=== PATIENT | female | born 1945 | race African-American/Black ===

== ENCOUNTER 2017-05-02 04:48 | Inpatient (IN) | payer MEDICARE ==
[~2017-05-02] VITALS: Ht 162.6 cm; Wt 56.2 kg
[2017-05-02 05:14] LABS: BASOPHILS % 0.4 % (0.0-2.0); EOSINOPHILS % 0.5 % (0.0-5.0); HEMATOCRIT. 43.8 % (36.0-48.0); HEMOGLOBIN. 14.5 g/dL (12.0-16.0); LYMPHOCYTES % 38.8 % (20.0-50.0); MEAN CORPUSCULAR VOLUME 102.7 fL (81.0-99.0); MEAN PLATELET VOLUME 7.7 fl (7.4-10.4); MONOCYTES % 4.5 % (2.0-8.0); NEUTROPHILS % 55.8 % (40.0-76.0); PLATELET 299 x1000/uL (130-400); RED BLOOD CELL COUNT 4.27 mill/uL (4.2-5.4); RED CELL DISTRIBUTION WIDTH 13.9 % (11.6-14.6)
[2017-05-02 05:21] LABS: PROTHROMBIN TIME 10.7 sec (9.4-11.6)
[2017-05-02 05:42] LABS: CARBON DIOXIDE 22 mEq/L (21-32); CHLORIDE 111 mEq/L (98-107); TROPONIN I 0.04 ng/mL (0.00-0.04)
[2017-05-02] MEDS ORDERED: ALBUTEROL (0.5%) 2.5MG/0.5ML NEB HHN ONE (05:45)
[2017-05-02 06:09] LABS: BG CARBOXYHEMOGLOBIN 2.6 % (0.5-1.5); BG DEOXYHEMOGLOBIN 9.6 % (0.0-5.0); BG HCO3 ACT 24.2 mmol/L (22.0-26.0); BG METHEMOGLOBIN 0.3 % (0.0-1.5); BG OXYGEN SATURATION 90.1 % (92.0-98.5); BG OXYHEMOGLOBIN 87.5 % (94.0-97.0); BG PCO2 38.1 mmHg (35.0-45.0); BG PH 7.421 (7.350-7.450); BG PO2 58.8 mmHg (75.0-100.0); BG SAMPLE SITE LEFT RADIAL; BG TOTAL HEMOGLOBIN 15.3 g/dL (12.0-18.0); BG VENT MODE NASAL CANNULA
[2017-05-02] MEDS ORDERED: FUROSEMIDE 20MG/2ML VIAL IVP ONE (06:30)
[2017-05-02] MEDS ORDERED: ASPIRIN 81MG TABLET PO ONE (06:30)
[2017-05-02 08:30] VITALS: BP 125/78
[2017-05-02] MEDS ORDERED: POTASSIUM CHLORIDE 20MEQ TABLET SR PO NR ×2 (09:30→13:45)
[2017-05-02] MEDS: ENOXAPARIN 40MG/0.4ML SYR SUBCUT SCH (10:55)
[2017-05-02 11:26] LABS: CARBON DIOXIDE 25 mEq/L (21-32); CHLORIDE 109 mEq/L (98-107); CREATINE KINASE 60 IU/L (26-192); CREATINE KINASE MB FRACTION 1.9 ng/mL (0.5-3.6); TROPONIN I 0.09 ng/mL (0.00-0.04)
[2017-05-02 11:47] VITALS: BP 131/74
[2017-05-02] MEDS: LISINOPRIL 5MG TABLET PO SCH (14:24)
[2017-05-02 15:52] VITALS: BP 127/84
[2017-05-02 20:00] VITALS: BP 141/84
[2017-05-02] MEDS ORDERED: IPRATROPIUM/ALBUTEROL 0.5-3(2.5)MG/3ML NEB HHN NR (20:30)
[2017-05-02] MEDS ORDERED: FUROSEMIDE 20MG/2ML VIAL IVP NR (20:45)
[2017-05-02] MEDS ORDERED: LACTULOSE 20G/30ML UDC PO NR (20:45)
[2017-05-02] MEDS: CARVEDILOL 3.125 MG TABLET PO SCH (20:47)
[2017-05-02] MEDS: DOCUSATE SODIUM 100MG CAPSULE PO SCH (20:47)
[2017-05-02 22:04] LABS: CREATINE KINASE MB FRACTION 1.9 ng/mL (0.5-3.6); TROPONIN I 0.08 ng/mL (0.00-0.04)
[2017-05-03] VITALS: BP 116/71
[2017-05-03 04:00] VITALS: BP 100/60
[2017-05-03 05:54] LABS: *AMPHETAMINES SCREEN URINE NEGATIVE (NEGATIVE); *BARBITURATES SCREEN URINE NEGATIVE (NEGATIVE); *BENZODIAZEPINES SCREEN URINE NEGATIVE (NEGATIVE); *COCAINE SCREEN URINE PRESUMTIVE POSITIVE (NEGATIVE); CANNABINOID URINE SCREEN NEGATIVE (NEGATIVE); METHADONE URINE SCREEN NEGATIVE (NEGATIVE); OPIATES URINE SCREEN NEGATIVE (NEGATIVE); PHENCYCLIDINE URINE SCREEN NEGATIVE (NEGATIVE)
[2017-05-03 06:10] LABS: BASOPHILS % 0.6 % (0.0-2.0); EOSINOPHILS % 0.6 % (0.0-5.0); HEMATOCRIT. 39.9 % (36.0-48.0); HEMOGLOBIN. 13.3 g/dL (12.0-16.0); LYMPHOCYTES % 38.3 % (20.0-50.0); MEAN CORPUSCULAR HEMOGLOBIN 33.9 pg (28.0-32.0); MEAN CORPUSCULAR VOLUME 101.8 fL (81.0-99.0); MEAN PLATELET VOLUME 8.4 fl (7.4-10.4); MONOCYTES % 5.3 % (2.0-8.0); NEUTROPHILS % 55.2 % (40.0-76.0); PLATELET 258 x1000/uL (130-400); RED BLOOD CELL COUNT 3.92 mill/uL (4.2-5.4); RED CELL DISTRIBUTION WIDTH 13.9 % (11.6-14.6)
[2017-05-03 07:06] LABS: CARBON DIOXIDE 28 mEq/L (21-32); CHLORIDE 109 mEq/L (98-107)
[2017-05-03 08:00] VITALS: BP 111/71
[2017-05-03] MEDS: DOCUSATE SODIUM 100MG CAPSULE PO SCH ×2 (08:25→16:14)
[2017-05-03] MEDS: LISINOPRIL 5MG TABLET PO SCH (08:25)
[2017-05-03] MEDS: CARVEDILOL 3.125 MG TABLET PO SCH ×2 (08:26→21:00)
[2017-05-03] MEDS: ENOXAPARIN 40MG/0.4ML SYR SUBCUT SCH (09:59)
[2017-05-03] MEDS: SPIRONOLACTONE 25MG TABLET PO SCH (10:44)
[2017-05-03] MEDS: IPRATROPIUM/ALBUTEROL 0.5-3(2.5)MG/3ML NEB HHN PRN ×2 (11:29→13:31)
[2017-05-03 12:55] VITALS: BP 117/67
[2017-05-03] MEDS ORDERED: THIAMINE HCL 100MG TABLET PO SCH (15:30)
[2017-05-03 16:00] VITALS: BP 96/49
[2017-05-03] MEDS: THIAMINE HCL 100MG TABLET PO SCH (16:14)
[2017-05-03] MEDS: FOLIC ACID 1MG TABLET PO SCH (16:14)
[2017-05-03] MEDS: IPRATROPIUM/ALBUTEROL 0.5-3(2.5)MG/3ML NEB HHN SCH (17:19)
[2017-05-03 20:00] VITALS: BP 109/54
[2017-05-03] MEDS: AMLODIPINE 5MG TABLET PO SCH (21:00)
[2017-05-03 22:59] LABS: CLARITY URINE CLEAR (CLEAR); COLOR URINE YELLOW (YELLOW); GLUCOSE URINE NEGATIVE (NEGATIVE); KETONES URINE NEGATIVE (NEGATIVE); LEUKOCYTE ESTERASE URINE TRACE (NEGATIVE); NITRITE URINE NEGATIVE (NEGATIVE); OCCULT BLOOD URINE NEGATIVE (NEGATIVE); PH URINE 6.5 (4.5-8.0); PROTEIN URINE NEGATIVE (NEGATIVE); SPECIFIC GRAVITY URINE 1.006 (1.005-1.030); UROBILINOGEN URINE 0.2 E.U./dL (0.2-1.0)
[2017-05-04] VITALS: BP 112/61
[2017-05-04] MEDS: BUDESONIDE 0.5MG/2ML NEB HHN SCH ×2 (01:41→09:24)
[2017-05-04] MEDS: IPRATROPIUM/ALBUTEROL 0.5-3(2.5)MG/3ML NEB HHN SCH ×2 (01:41→09:24)
[2017-05-04 04:00] VITALS: BP 110/72
[2017-05-04 07:20] LABS: BASOPHILS % 0.5 % (0.0-2.0); EOSINOPHILS % 1.2 % (0.0-5.0); HEMATOCRIT. 39.8 % (36.0-48.0); HEMOGLOBIN. 13.3 g/dL (12.0-16.0); LYMPHOCYTES % 44.2 % (20.0-50.0); MEAN CORPUSCULAR HEMOGLOBIN 33.9 pg (28.0-32.0); MEAN CORPUSCULAR VOLUME 101.8 fL (81.0-99.0); MEAN PLATELET VOLUME 8.4 fl (7.4-10.4); MONOCYTES % 7.4 % (2.0-8.0); NEUTROPHILS % 46.7 % (40.0-76.0); PLATELET 250 x1000/uL (130-400); RED BLOOD CELL COUNT 3.91 mill/uL (4.2-5.4); RED CELL DISTRIBUTION WIDTH 13.9 % (11.6-14.6)
[2017-05-04] MEDS ORDERED: FUROSEMIDE 20MG TABLET PO SCH (09:00)
[2017-05-04] MEDS: LISINOPRIL 5MG TABLET PO SCH (09:00)
[2017-05-04] MEDS: AMLODIPINE 5MG TABLET PO SCH (09:00)
[2017-05-04] MEDS: CARVEDILOL 3.125 MG TABLET PO SCH (09:00)
[2017-05-04] MEDS: DOCUSATE SODIUM 100MG CAPSULE PO SCH (09:59)
[2017-05-04] MEDS: FOLIC ACID 1MG TABLET PO SCH (09:59)
[2017-05-04] MEDS: ENOXAPARIN 40MG/0.4ML SYR SUBCUT SCH (09:59)
[2017-05-04] MEDS: SPIRONOLACTONE 25MG TABLET PO SCH (10:00)
[2017-05-04] MEDS: THIAMINE HCL 100MG TABLET PO SCH (10:00)
[2017-05-04 11:45] VITALS: BP 107/60
== END 2017-05-04 12:48 | disposition home or self-care (01) | DRG 291 ==
LOC: ER 04:48 → 8WST 06:21 → ENRESERV 07:03
PROVIDERS: ADMIT Internal Medicine; ATTEND Internal Medicine
DX: I50.23 Acute on chronic systolic (congestive) heart failure (principal); J96.00 Acute respiratory failure, unspecified whether with hypoxia or hypercapnia; E44.0 Moderate protein-calorie malnutrition; I42.9 Cardiomyopathy, unspecified; T40.5X1A Poisoning by cocaine, accidental (unintentional), initial encounter; E87.6 Hypokalemia; F17.210 Nicotine dependence, cigarettes, uncomplicated; R73.9 Hyperglycemia, unspecified; F14.10 Cocaine abuse, uncomplicated; I27.2 Other secondary pulmonary hypertension; F10.10 Alcohol abuse, uncomplicated; J44.9 Chronic obstructive pulmonary disease, unspecified; I08.1 Rheumatic disorders of both mitral and tricuspid valves; Z96.642 Presence of left artificial hip joint; Z88.0 Allergy status to penicillin; Z82.49 Family history of ischemic heart disease and other diseases of the circulatory system; Z82.5 Family history of asthma and other chronic lower respiratory diseases; Z98.51 Tubal ligation status; Z22.322 Carrier or suspected carrier of Methicillin resistant Staphylococcus aureus; Z68.21 Body mass index [BMI] 21.0-21.9, adult
CPT/HCPCS: 36415; 36600; 71010; 80048; 80053; 80305; 81001; 82375; 82550; 82553; 82805; 83036; 83735; 83880; 84484; 85025; 85379; 85610; 93005; 93306; 93970; 94640; 94664; 96374; 96375; 99291; J1650; J1940; J7611; J7620; J7626

== ENCOUNTER 2017-09-14 12:38 | Emergency (ER) | payer MEDICARE ==
[~2017-09-14] VITALS: Ht 154.9 cm; Wt 61.0 kg
[2017-09-14 12:48] VITALS: BP 118/75
== END 2017-09-14 21:37 | disposition left against medical advice (07) ==
LOC: ER 13:46
DX: Z53.21 Procedure and treatment not carried out due to patient leaving prior to being seen by health care provider (principal)

== ENCOUNTER 2017-11-29 12:39 | Inpatient (IN) | payer MEDICARE ==
[~2017-11-29] VITALS: Ht 167.6 cm; Wt 59.9 kg
[2017-11-29] MEDS ORDERED: CARV3.1242 PO (12:43)
[2017-11-29] MEDS ORDERED: FURO20TA4 PO (12:43)
[2017-11-29] MEDS ORDERED: ONDANSETRON HCL 4MG/2ML VIAL IV STA (12:54)
[2017-11-29] MEDS ORDERED: MORPHINE SULFATE 4 MG/ML CPJ (NOT FOR IM USE) IV STA (12:54)
[2017-11-29] MEDS ORDERED: METHYLPREDNISOLONE SOD SUCC 125 MG/2 ML VIAL IV STA (12:54)
[2017-11-29] MEDS ORDERED: SODIUM CHLORIDE 0.9% 500 ML IV ONE (12:54)
[2017-11-29] MEDS ORDERED: LEVOFLOXACIN 750MG PREMIX 150 ML IV ONE (13:00)
[2017-11-29] MEDS ORDERED: MAGNESIUM 2 G PREMIX 50 ML IV ONE (13:00)
[2017-11-29] MEDS: IPRATROPIUM/ALBUTEROL 0.5-3(2.5)MG/3ML NEB HHN ONE ×2 (13:40→14:40)
[2017-11-29 13:46] LABS: BG BASE EXCESS -4.2 mmol/L (-2.0-2.0); BG DEOXYHEMOGLOBIN 3.4 % (0.0-5.0); BG FRACTION INSPIRED OXYGEN 32; BG HCO3 ACT 20.4 mmol/L (22.0-26.0); BG METHEMOGLOBIN 0.4 % (0.0-1.5); BG OXYHEMOGLOBIN 95.2 % (94.0-97.0); BG PCO2 36.1 mmHg (35.0-45.0); BG PH 7.371 (7.350-7.450); BG PO2 93.4 mmHg (75.0-100.0); BG SAMPLE SITE LEFT RADIAL; BG TOTAL HEMOGLOBIN 13.6 g/dL (12.0-18.0); BG VENT MODE NASAL CANNULA
[2017-11-29 14:49] LABS: CHLORIDE 115 mEq/L (98-107)
[2017-11-29 14:57] LABS: D-DIMER 2.25 mg/L FEU (<0.50); INR 1.3; PARTIAL THROMBOPLASTIN TIME 26.6 sec (23.4-31.0)
[2017-11-29 15:00] LABS: *BARBITURATES SCREEN URINE NEGATIVE (NEGATIVE); CANNABINOID URINE SCREEN NEGATIVE (NEGATIVE)
[2017-11-29 15:04] LABS: METHADONE URINE SCREEN NEGATIVE (NEGATIVE); OPIATES URINE SCREEN NEGATIVE (NEGATIVE)
[2017-11-29 15:06] LABS: *BENZODIAZEPINES SCREEN URINE NEGATIVE (NEGATIVE)
[2017-11-29 15:07] LABS: *COCAINE SCREEN URINE PRESUMTIVE POSITIVE (NEGATIVE)
[2017-11-29 15:08] LABS: *AMPHETAMINES SCREEN URINE NEGATIVE (NEGATIVE)
[2017-11-29 15:23] LABS: CREATINE KINASE 33 IU/L (26-192)
[2017-11-29 15:31] LABS: BASOPHILS % 0.8 % (0.0-2.0); EOSINOPHILS % 2.1 % (0.0-5.0); HEMATOCRIT. 39.8 % (36.0-48.0); HEMOGLOBIN. 12.7 g/dL (12.0-16.0); LYMPHOCYTES % 22.9 % (20.0-50.0); MEAN CORPUSCULAR HEMOGLOBIN 29.8 pg (28.0-32.0); MEAN CORPUSCULAR VOLUME 93.4 fL (81.0-99.0); MEAN PLATELET VOLUME 8.7 fl (7.4-10.4); MONOCYTES % 8.2 % (2.0-8.0); PLATELET 230 x1000/uL (130-400); RED BLOOD CELL COUNT 4.26 mill/uL (4.2-5.4); RED CELL DISTRIBUTION WIDTH 18.8 % (11.6-14.6)
[2017-11-29 15:36] LABS: PHENCYCLIDINE URINE SCREEN NEGATIVE (NEGATIVE)
[2017-11-29] MEDS: NICOTINE 14MG PATCH TD SCH (17:30)
[2017-11-29] MEDS ORDERED: LORAZEPAM 2MG/ML CPJ IM PRN (17:30)
[2017-11-29] MEDS: AMLODIPINE 5MG TABLET PO SCH (17:30)
[2017-11-29] MEDS ORDERED: BENZONATATE 100MG CAPSULE PO PRN (17:45)
[2017-11-29] MEDS ORDERED: ONDANSETRON HCL 4MG/2ML VIAL IV PRN (18:30)
[2017-11-29] MEDS ORDERED: IPRATROPIUM/ALBUTEROL 0.5-3(2.5)MG/3ML NEB INH PRN (18:30)
[2017-11-29] MEDS ORDERED: ACETAMINOPHEN 325MG TABLET PO PRN (18:30)
[2017-11-29] MEDS ORDERED: CLONIDINE 0.1MG TABLET PO PRN (18:30)
[2017-11-29] MEDS ORDERED: MAGNESIUM/ALUMINUM HYDROXIDE/SIMETHICONE 30ML UDC PO PRN (18:30)
[2017-11-29] MEDS ORDERED: FUROSEMIDE 40MG/4ML VIAL IVP NR (18:45)
[2017-11-29] MEDS ORDERED: AZITHROMYCIN 500 MG TABLET PO NR (18:45)
[2017-11-29] MEDS: IPRATROPIUM/ALBUTEROL 0.5-3(2.5)MG/3ML NEB HHN SCH (21:42)
[2017-11-29 22:20] VITALS: BP 109/76
[2017-11-29] MEDS: AZITHROMYCIN 500 MG TABLET PO SCH (22:45)
[2017-11-29] MEDS ORDERED: PNEUMOCOCCAL 23-VAL P-SAC VAC 0.5 ML IM ONE (22:45)
[2017-11-29] MEDS: MULTIVITAMINS,THER W-MINERALS TABLET PO SCH (22:46)
[2017-11-29] MEDS: FOLIC ACID 1MG TABLET PO SCH (22:46)
[2017-11-29] MEDS: THIAMINE HCL 100MG TABLET PO SCH (22:46)
[2017-11-30 00:41] VITALS: BP 112/70
[2017-11-30] MEDS: IPRATROPIUM/ALBUTEROL 0.5-3(2.5)MG/3ML NEB HHN PRN ×2 (01:30→07:31)
[2017-11-30 01:37] LABS: CREATINE KINASE MB FRACTION 1.8 ng/mL (0.5-3.6)
[2017-11-30] MEDS: IPRATROPIUM/ALBUTEROL 0.5-3(2.5)MG/3ML NEB HHN SCH ×5 (01:45→20:42)
[2017-11-30 04:00] VITALS: BP 105/74
[2017-11-30] MEDS: BUDESONIDE 0.5MG/2ML NEB HHN SCH ×2 (07:32→20:42)
[2017-11-30 07:38] LABS: BASOPHILS % 0.2 % (0.0-2.0); HEMATOCRIT. 39.8 % (36.0-48.0); HEMOGLOBIN. 12.6 g/dL (12.0-16.0); LYMPHOCYTES % 13.6 % (20.0-50.0); MEAN CORPUSCULAR HEMOGLOBIN 29.5 pg (28.0-32.0); MEAN CORPUSCULAR VOLUME 93.4 fL (81.0-99.0); MEAN PLATELET VOLUME 9.6 fl (7.4-10.4); MONOCYTES % 3.1 % (2.0-8.0); NEUTROPHILS % 83.1 % (40.0-76.0); PLATELET 225 x1000/uL (130-400); RED BLOOD CELL COUNT 4.27 mill/uL (4.2-5.4); RED CELL DISTRIBUTION WIDTH 18.5 % (11.6-14.6)
[2017-11-30 08:21] VITALS: BP 103/68
[2017-11-30 08:33] LABS: CREATINE KINASE MB FRACTION 1.8 ng/mL (0.5-3.6)
[2017-11-30] MEDS: AMLODIPINE 5MG TABLET PO SCH (09:00)
[2017-11-30] MEDS: THIAMINE HCL 100MG TABLET PO SCH (09:39)
[2017-11-30] MEDS: MULTIVITAMINS,THER W-MINERALS TABLET PO SCH (09:39)
[2017-11-30] MEDS: GUAIFENESIN 600MG ER TABLET PO SCH ×2 (09:39→21:19)
[2017-11-30] MEDS: FOLIC ACID 1MG TABLET PO SCH (09:39)
[2017-11-30] MEDS: ENOXAPARIN 40MG/0.4ML SYR SUBCUT SCH (09:40)
[2017-11-30] MEDS: FUROSEMIDE 40MG/4ML VIAL IVP SCH (09:40)
[2017-11-30] MEDS: NICOTINE 14MG PATCH TD SCH (09:42)
[2017-11-30] MEDS: LISINOPRIL 2.5MG TABLET PO SCH (10:00)
[2017-11-30 11:55] VITALS: BP 100/62
[2017-11-30 13:22] LABS: KETONES URINE NEGATIVE (NEGATIVE); LEUKOCYTE ESTERASE URINE TRACE (NEGATIVE); NITRITE URINE NEGATIVE (NEGATIVE); OCCULT BLOOD URINE NEGATIVE (NEGATIVE); PH URINE 5.5 (4.5-8.0); PROTEIN URINE NEGATIVE (NEGATIVE); SPECIFIC GRAVITY URINE 1.015 (1.005-1.030)
[2017-11-30 13:26] LABS: CLARITY URINE CLEAR (CLEAR); COLOR URINE YELLOW (YELLOW)
[2017-11-30 15:57] VITALS: BP 117/63
[2017-11-30 19:52] VITALS: BP 110/63
[2017-11-30] MEDS: CARVEDILOL 3.125 MG TABLET PO SCH (21:19)
[2017-11-30] MEDS: AZITHROMYCIN 500 MG TABLET PO SCH (22:39)
[2017-12-01] VITALS (9 sets, daily range): BP systolic 85–142; BP diastolic 53–80
[2017-12-01] MEDS: IPRATROPIUM/ALBUTEROL 0.5-3(2.5)MG/3ML NEB HHN SCH ×4 (01:24→11:10)
[2017-12-01] MEDS: BUDESONIDE 0.5MG/2ML NEB HHN SCH (07:18)
[2017-12-01] MEDS: LISINOPRIL 2.5MG TABLET PO SCH (08:10)
[2017-12-01] MEDS: FUROSEMIDE 40MG/4ML VIAL IVP SCH (08:10)
[2017-12-01] MEDS: GUAIFENESIN 600MG ER TABLET PO SCH (08:10)
[2017-12-01] MEDS: THIAMINE HCL 100MG TABLET PO SCH (08:11)
[2017-12-01] MEDS: MULTIVITAMINS,THER W-MINERALS TABLET PO SCH (08:11)
[2017-12-01] MEDS: FOLIC ACID 1MG TABLET PO SCH (08:11)
[2017-12-01] MEDS: CARVEDILOL 3.125 MG TABLET PO SCH (08:11)
[2017-12-01] MEDS: ENOXAPARIN 40MG/0.4ML SYR SUBCUT SCH (08:14)
[2017-12-01] MEDS: NICOTINE 14MG PATCH TD SCH (13:32)
[2017-12-02] MEDS ORDERED: FUROSEMIDE 20MG TABLET PO SCH (09:00)
== END 2017-12-01 18:08 | disposition home or self-care (01) | DRG 917 ==
LOC: ER 12:41 → 6WST 15:27 → EDBEDREQ 15:28 → ENRESERV 19:26
PROVIDERS: ADMIT Internal Medicine; ATTEND Internal Medicine
DX: T40.5X1A Poisoning by cocaine, accidental (unintentional), initial encounter (principal); J96.00 Acute respiratory failure, unspecified whether with hypoxia or hypercapnia; I50.23 Acute on chronic systolic (congestive) heart failure; E44.0 Moderate protein-calorie malnutrition; I42.9 Cardiomyopathy, unspecified; J68.0 Bronchitis and pneumonitis due to chemicals, gases, fumes and vapors; E87.1 Hypo-osmolality and hyponatremia; F10.20 Alcohol dependence, uncomplicated; F17.210 Nicotine dependence, cigarettes, uncomplicated; I11.0 Hypertensive heart disease with heart failure; I27.20 Pulmonary hypertension, unspecified; I34.0 Nonrheumatic mitral (valve) insufficiency; Y92.89 Other specified places as the place of occurrence of the external cause; Z91.19 Patient's noncompliance with other medical treatment and regimen; Z88.0 Allergy status to penicillin; Z79.899 Other long term (current) drug therapy; Z98.51 Tubal ligation status; Z68.21 Body mass index [BMI] 21.0-21.9, adult
CPT/HCPCS: 36415; 36600; 71045; 80048; 80053; 80061; 80305; 81003; 82375; 82550; 82553; 82805; 83605; 83690; 83735; 83880; 84443; 84484; 85025; 85379; 85610; 85730; 87040; 90732; 93005; 93306; 93970; 94640; 96365; 96368; 96375; 99285; J1650; J1940; J1956; J2270; J2405; J2930; J3475; J7040; J7620; J7626

== ENCOUNTER 2017-12-30 11:27 | Emergency (ER) | payer MEDICARE ==
[~2017-12-30] VITALS: Ht 160 cm; Wt 66.0 kg
[~2017-12-30 11:27] MED LIST: ASPI-1160 PO; COR6 PO; FURO40TA5 PO; LOSA50TA3 PO; SULF-292 PO
[2017-12-30] MEDS ORDERED: SODIUM CHLORIDE 0.9% 500 ML IV ONE (12:20)
[2017-12-30 12:21] LABS: EOSINOPHILS % 2.8 % (0.0-5.0); HEMATOCRIT. 48.2 % (36.0-48.0); HEMOGLOBIN. 15.2 g/dL (12.0-16.0); LYMPHOCYTES % 33.7 % (20.0-50.0); MEAN CORPUSCULAR HEMOGLOBIN 29.1 pg (28.0-32.0); MEAN CORPUSCULAR VOLUME 92.2 fL (81.0-99.0); MEAN PLATELET VOLUME 8.3 fl (7.4-10.4); MONOCYTES % 8.5 % (2.0-8.0); PLATELET 268 x1000/uL (130-400); RED BLOOD CELL COUNT 5.23 mill/uL (4.2-5.4); RED CELL DISTRIBUTION WIDTH 17.2 % (11.6-14.6)
[2017-12-30 12:26] LABS: CHLORIDE 103 mEq/L (98-107)
[2017-12-30 12:28] LABS: INR 1.1; PARTIAL THROMBOPLASTIN TIME 24.7 sec (23.4-31.0); PROTHROMBIN TIME 11.1 sec (9.4-11.6)
[2017-12-30 17:13] VITALS: BP 121/72
== END 2017-12-30 18:42 | disposition left against medical advice (07) ==
LOC: ER 11:36 → CANRESERV 17:33 → ENRESERV 17:33 → CANBEDREQ 18:09 → ER 18:42
DX: R55 Syncope and collapse (principal); I10 Essential (primary) hypertension; E11.9 Type 2 diabetes mellitus without complications; Z88.0 Allergy status to penicillin; Z79.82 Long term (current) use of aspirin
CPT/HCPCS: 36415; 70450; 71045; 80053; 82962; 83690; 84484; 85025; 85610; 85730; 93005; 96360; 99285; J7040

== ENCOUNTER 2019-02-07 20:53 | Inpatient (IN) | payer MEDICARE ==
[~2019-02-07] VITALS: Ht 163.8 cm; Wt 61.2 kg
[~2019-02-07 20:53] MED LIST changes: +BENZ100C86 PO; -COR6 PO; +DOCU-138 PO; -FURO40TA5 PO; -LOSA50TA3 PO; -SULF-292 PO
[2019-02-07] MEDS ORDERED: SODIUM CHLORIDE 0.9% 1,000 ML IV ONE (22:19)
[2019-02-07 23:08] LABS: BASOPHILS % 0.9 % (0.0-2.0); EOSINOPHILS % 2.8 % (0.0-5.0); HEMATOCRIT. 48.5 % (36.0-48.0); HEMOGLOBIN. 15.4 g/dL (12.0-16.0); LYMPHOCYTES % 29.4 % (20.0-50.0); MEAN CORPUSCULAR HEMOGLOBIN 32.2 pg (28.0-32.0); MEAN CORPUSCULAR VOLUME 101.3 fL (81.0-99.0); MEAN PLATELET VOLUME 8.8 fl (7.4-10.4); MONOCYTES % 10.8 % (2.0-8.0); NEUTROPHILS % 56.1 % (40.0-76.0); PLATELET 207 x1000/uL (130-400); RED BLOOD CELL COUNT 4.78 mill/uL (4.2-5.4); RED CELL DISTRIBUTION WIDTH 15.9 % (11.6-14.6)
[2019-02-07 23:14] LABS: CHLORIDE 113 mEq/L (98-107)
[2019-02-07 23:18] LABS: ETHANOL BLOOD 65 mg/dL; INR 1.1; PROTHROMBIN TIME 11.1 sec (9.6-11.0)
[2019-02-08] VITALS (8 sets, daily range): BP systolic 103–137; BP diastolic 59–86
[2019-02-08 02:16] LABS: CLARITY URINE CLEAR (CLEAR); COLOR URINE YELLOW (YELLOW); KETONES URINE NEGATIVE (NEGATIVE); LEUKOCYTE ESTERASE URINE 1+ (NEGATIVE); NITRITE URINE NEGATIVE (NEGATIVE); OCCULT BLOOD URINE NEGATIVE (NEGATIVE); PROTEIN URINE NEGATIVE (NEGATIVE); SPECIFIC GRAVITY URINE 1.009 (1.005-1.030)
[2019-02-08 02:30] LABS: *AMPHETAMINES SCREEN URINE NEGATIVE (NEGATIVE)
[2019-02-08 02:31] LABS: *BARBITURATES SCREEN URINE NEGATIVE (NEGATIVE); *BENZODIAZEPINES SCREEN URINE NEGATIVE (NEGATIVE); *COCAINE SCREEN URINE NEGATIVE (NEGATIVE); CANNABINOID URINE SCREEN NEGATIVE (NEGATIVE); METHADONE URINE SCREEN NEGATIVE (NEGATIVE); OPIATES URINE SCREEN PRESUMTIVE POSITIVE (NEGATIVE); PHENCYCLIDINE URINE SCREEN NEGATIVE (NEGATIVE)
[2019-02-08] MEDS ORDERED: SODIUM CHLORIDE 0.9% 1000ML BAG (SEPSIS BOLUS) IV ONE (04:35)
[2019-02-08] MEDS ORDERED: CLONIDINE 0.1MG TABLET PO PRN (09:00)
[2019-02-08] MEDS ORDERED: GUAIFENESIN 200MG/10ML SUGAR FREE UDC PO PRN (09:00)
[2019-02-08] MEDS ORDERED: ACETAMINOPHEN 325MG TABLET PO PRN (09:00)
[2019-02-08] MEDS ORDERED: IPRATROPIUM/ALBUTEROL 0.5-3(2.5)MG/3ML NEB INH PRN (09:00)
[2019-02-08] MEDS ORDERED: DOCUSATE SODIUM 100MG CAPSULE PO PRN (09:00)
[2019-02-08] MEDS ORDERED: MAGNESIUM/ALUMINUM HYDROXIDE/SIMETHICONE 30ML UDC PO PRN (09:00)
[2019-02-08] MEDS ORDERED: HYDROCODONE/ACETAMINOPHEN 5/325MG TABLET PO PRN (09:00)
[2019-02-08] MEDS ORDERED: DIPHENHYDRAMINE 50MG/ML VIAL IV PRN (09:00)
[2019-02-08] MEDS ORDERED: ONDANSETRON HCL 4MG/2ML INJ IV PRN (09:00)
[2019-02-08] MEDS ORDERED: SODIUM CHLORIDE 0.45% 1,000 ML IV SCH (09:40)
[2019-02-08] MEDS: POTASSIUM CHLORIDE 10MEQ TABLET SR PO SCH ×2 (09:53→16:36)
[2019-02-08] MEDS: FUROSEMIDE 40MG/4ML VIAL IVP SCH ×2 (09:53→16:36)
[2019-02-08] MEDS: ASPIRIN 81MG EC TABLET PO SCH (09:53)
[2019-02-08] MEDS: ENOXAPARIN 40MG/0.4ML SYR SUBCUT SCH (09:54)
[2019-02-08] MEDS: NICOTINE 14MG PATCH TD SCH (12:04)
[2019-02-08] MEDS: MULTIVITAMINS,THER W-MINERALS TABLET PO SCH (12:05)
[2019-02-08] MEDS: THIAMINE HCL 100MG TABLET PO SCH (12:05)
[2019-02-08] MEDS: FOLIC ACID 1MG TABLET PO SCH (12:05)
[2019-02-08] MEDS: IPRATROPIUM/ALBUTEROL 0.5-3(2.5)MG/3ML NEB HHN SCH ×2 (12:37→20:50)
[2019-02-08 18:37] LABS: PHOSPHORUS 3.5 mg/dL (2.5-4.9)
[2019-02-08 18:42] LABS: CREATINE KINASE MB FRACTION 3.1 ng/mL (0.5-3.6)
[2019-02-08] MEDS: CARVEDILOL 3.125 MG TABLET PO SCH (21:41)
[2019-02-09] VITALS (7 sets, daily range): BP systolic 107–151; BP diastolic 52–90
[2019-02-09 00:51] LABS: CREATINE KINASE MB FRACTION 2.5 ng/mL (0.5-3.6)
[2019-02-09] MEDS: IPRATROPIUM/ALBUTEROL 0.5-3(2.5)MG/3ML NEB HHN SCH ×4 (01:50→20:37)
[2019-02-09] MEDS ORDERED: DIPHENHYDRAMINE 25MG CAPSULE PO PRN (07:30)
[2019-02-09] MEDS ORDERED: DIPHENHYDRAMINE 25MG CAPSULE PO NR (07:30)
[2019-02-09] MEDS: CARVEDILOL 3.125 MG TABLET PO SCH ×2 (08:12→20:58)
[2019-02-09] MEDS: LISINOPRIL 2.5MG TABLET PO SCH ×2 (08:12→08:13)
[2019-02-09 08:39] LABS: BASOPHILS % 0.9 % (0.0-2.0); EOSINOPHILS % 3.7 % (0.0-5.0); HEMATOCRIT. 42.1 % (36.0-48.0); LYMPHOCYTES % 28.3 % (20.0-50.0); MEAN CORPUSCULAR VOLUME 99.5 fL (81.0-99.0); MEAN PLATELET VOLUME 9.1 fl (7.4-10.4); MONOCYTES % 10.9 % (2.0-8.0); NEUTROPHILS % 56.2 % (40.0-76.0); PLATELET 198 x1000/uL (130-400); RED BLOOD CELL COUNT 4.23 mill/uL (4.2-5.4); RED CELL DISTRIBUTION WIDTH 15.4 % (11.6-14.6)
[2019-02-09 09:15] LABS: CHLORIDE 109 mEq/L (98-107)
[2019-02-09] MEDS: MULTIVITAMINS,THER W-MINERALS TABLET PO SCH (09:20)
[2019-02-09] MEDS: ASPIRIN 81MG EC TABLET PO SCH (09:20)
[2019-02-09] MEDS: POTASSIUM CHLORIDE 10MEQ TABLET SR PO SCH ×2 (09:20→16:56)
[2019-02-09] MEDS: FOLIC ACID 1MG TABLET PO SCH (09:20)
[2019-02-09] MEDS: FUROSEMIDE 100MG/10ML VIAL IVP SCH ×2 (09:20→16:55)
[2019-02-09] MEDS: THIAMINE HCL 100MG TABLET PO SCH (09:20)
[2019-02-09] MEDS: NICOTINE 14MG PATCH TD SCH (09:21)
[2019-02-09] MEDS: ENOXAPARIN 40MG/0.4ML SYR SUBCUT SCH (09:21)
[2019-02-09 09:35] LABS: LDL CHOLESTEROL 72 mg/dL (5-100)
[2019-02-09 09:36] LABS: HDL CHOLESTEROL 45 mg/dL (40-59)
[2019-02-10 00:27] VITALS: BP 112/68
[2019-02-10] MEDS: IPRATROPIUM/ALBUTEROL 0.5-3(2.5)MG/3ML NEB HHN SCH ×4 (02:27→20:27)
[2019-02-10 04:00] VITALS: BP 95/57
[2019-02-10 06:01] LABS: EOSINOPHILS % 3.7 % (0.0-5.0); HEMOGLOBIN. 14.7 g/dL (12.0-16.0); LYMPHOCYTES % 28.4 % (20.0-50.0); MEAN CORPUSCULAR HEMOGLOBIN 32.2 pg (28.0-32.0); MEAN CORPUSCULAR VOLUME 98.3 fL (81.0-99.0); MONOCYTES % 10.7 % (2.0-8.0); NEUTROPHILS % 56.2 % (40.0-76.0); PLATELET 214 x1000/uL (130-400); RED BLOOD CELL COUNT 4.58 mill/uL (4.2-5.4); RED CELL DISTRIBUTION WIDTH 15.7 % (11.6-14.6)
[2019-02-10 06:15] LABS: PHOSPHORUS 3.9 mg/dL (2.5-4.9)
[2019-02-10] MEDS: FUROSEMIDE 100MG/10ML VIAL IVP SCH (06:19)
[2019-02-10 08:00] VITALS: BP 106/80
[2019-02-10] MEDS: CARVEDILOL 3.125 MG TABLET PO SCH ×2 (09:00→21:32)
[2019-02-10] MEDS: LISINOPRIL 2.5MG TABLET PO SCH (09:00)
[2019-02-10] MEDS: POTASSIUM CHLORIDE 10MEQ TABLET SR PO SCH ×2 (09:23→18:24)
[2019-02-10] MEDS: THIAMINE HCL 100MG TABLET PO SCH (09:23)
[2019-02-10] MEDS: FOLIC ACID 1MG TABLET PO SCH (09:23)
[2019-02-10] MEDS: ENOXAPARIN 40MG/0.4ML SYR SUBCUT SCH (09:23)
[2019-02-10] MEDS: FUROSEMIDE 40MG TABLET PO SCH ×2 (09:24→21:32)
[2019-02-10] MEDS: ASPIRIN 81MG EC TABLET PO SCH (09:26)
[2019-02-10] MEDS: MULTIVITAMINS,THER W-MINERALS TABLET PO SCH (09:26)
[2019-02-10] MEDS: NICOTINE 14MG PATCH TD SCH (09:27)
[2019-02-10 12:00] VITALS: BP 99/65
[2019-02-10] MEDS ORDERED: FURO40TA5 PO (14:13)
[2019-02-10] MEDS ORDERED: LISI2.5T47 PO (14:13)
[2019-02-10] MEDS ORDERED: NICO-681 TD (14:13)
[2019-02-10] MEDS ORDERED: COR3 PO (14:13)
[2019-02-10] MEDS ORDERED: KDUR10 PO (14:13)
[2019-02-10] MEDS ORDERED: FOLI-43 PO (14:13)
[2019-02-10] MEDS ORDERED: THIA100T72 PO (14:13)
[2019-02-10 16:00] VITALS: BP 116/85
[2019-02-10 20:00] VITALS: BP 126/54
[2019-02-11] VITALS: BP 102/73
[2019-02-11] MEDS: IPRATROPIUM/ALBUTEROL 0.5-3(2.5)MG/3ML NEB HHN SCH ×3 (00:21→13:15)
[2019-02-11 04:00] VITALS: BP 101/66
[2019-02-11 08:00] VITALS: BP 103/72
[2019-02-11] MEDS ORDERED: CARVEDILOL 6.25 MG TABLET PO SCH (09:00)
[2019-02-11] MEDS: LISINOPRIL 2.5MG TABLET PO SCH (09:00)
[2019-02-11] MEDS: ASPIRIN 81MG EC TABLET PO SCH (09:15)
[2019-02-11] MEDS: MULTIVITAMINS,THER W-MINERALS TABLET PO SCH (09:15)
[2019-02-11] MEDS: FUROSEMIDE 40MG TABLET PO SCH (09:15)
[2019-02-11] MEDS: FOLIC ACID 1MG TABLET PO SCH (09:15)
[2019-02-11] MEDS: THIAMINE HCL 100MG TABLET PO SCH (09:15)
[2019-02-11] MEDS: POTASSIUM CHLORIDE 10MEQ TABLET SR PO SCH ×2 (09:15→18:21)
[2019-02-11] MEDS: ENOXAPARIN 40MG/0.4ML SYR SUBCUT SCH (09:19)
[2019-02-11] MEDS: NICOTINE 14MG PATCH TD SCH (09:19)
[2019-02-11 12:00] VITALS: BP 102/68
[2019-02-11 14:19] LABS: HEPATITIS B SURFACE ANTIGEN NEGATIVE
[2019-02-11 14:43] LABS: HEPATITIS A AB IGM NEGATIVE (NEGATIVE)
[2019-02-11 16:00] VITALS: BP 99/59
[2019-02-11 18:48] VITALS: BP 99/59
[2019-02-12 05:13] LABS: HIV SCREEN 4G Non Reactive (Non Reactive)
== END 2019-02-11 19:40 | DRG 291 ==
LOC: ER 20:53 → 8WST 02-08 00:56 → EDBEDREQTM 02-08 00:59 → EDBEDREQ 02-08 00:59 → ENRESERV 02-08 02:58
PROVIDERS: ADMIT Internal Medicine; ATTEND Internal Medicine
DX: I11.0 Hypertensive heart disease with heart failure (principal); J96.00 Acute respiratory failure, unspecified whether with hypoxia or hypercapnia; E87.2 Acidosis; E87.0 Hyperosmolality and hypernatremia; I47.2 Ventricular tachycardia; J44.1 Chronic obstructive pulmonary disease with (acute) exacerbation; I50.23 Acute on chronic systolic (congestive) heart failure; I42.0 Dilated cardiomyopathy; E86.0 Dehydration; E88.09 Other disorders of plasma-protein metabolism, not elsewhere classified; Y90.3 Blood alcohol level of 60-79 mg/100 ml; F17.210 Nicotine dependence, cigarettes, uncomplicated; I27.20 Pulmonary hypertension, unspecified; I08.1 Rheumatic disorders of both mitral and tricuspid valves; M85.80 Other specified disorders of bone density and structure, unspecified site; M25.552 Pain in left hip; Z60.2 Problems related to living alone; F10.120 Alcohol abuse with intoxication, uncomplicated; I49.3 Ventricular premature depolarization; M60.852 Other myositis, left thigh; I70.8 Atherosclerosis of other arteries; Z59.0 Homelessness; Z79.82 Long term (current) use of aspirin; Z91.14 Patient's other noncompliance with medication regimen; Z79.899 Other long term (current) drug therapy; Z88.0 Allergy status to penicillin; Z71.6 Tobacco abuse counseling
CPT/HCPCS: 36415; 71045; 73502; 80048; 80061; 80305; 80320; 82550; 82553; 83605; 83735; 83880; 84100; 84443; 84484; 86705; 86709; 86803; 87340; 87389; 93005; 93306; 93970; 94640; 96374; 97162; 97166; 97530; 99285; J1650; J1940; J7030; J7620; Q0163; G0480

== ENCOUNTER 2019-05-11 14:23 | Emergency (ER) | payer MEDICARE, MEDICAID ==
[~2019-05-11] VITALS: Ht 167.6 cm; Wt 69.0 kg
[~2019-05-11 14:23] MED LIST changes: +COR3 PO; +FOLI-43 PO; +FURO40TA5 PO; +KDUR10 PO; +LISI2.5T47 PO; +NICO-681 TD; +THIA100T72 PO
[2019-05-11] MEDS ORDERED: SODIUM CHLORIDE 0.9% 1,000 ML IV ONE (15:45)
[2019-05-11] MEDS ORDERED: ONDANSETRON HCL 4MG/2ML INJ IV STA (15:45)
[2019-05-11 16:17] LABS: EOSINOPHILS % 1.4 % (0.0-5.0); HEMATOCRIT. 40.2 % (36.0-48.0); HEMOGLOBIN. 13.4 g/dL (12.0-16.0); LYMPHOCYTES % 19.3 % (20.0-50.0); MEAN CORPUSCULAR HEMOGLOBIN 31.6 pg (28.0-32.0); MEAN PLATELET VOLUME 7.6 fl (7.4-10.4); MONOCYTES % 6.9 % (2.0-8.0); NEUTROPHILS % 71.4 % (40.0-76.0); PLATELET 244 x1000/uL (130-400); RED BLOOD CELL COUNT 4.23 mill/uL (4.2-5.4); RED CELL DISTRIBUTION WIDTH 15.5 % (11.6-14.6)
[2019-05-11 16:23] LABS: CHLORIDE 104 mEq/L (98-107)
[2019-05-11 16:28] LABS: ETHANOL BLOOD 29 mg/dL
[2019-05-11 16:55] LABS: *AMPHETAMINES SCREEN URINE NEGATIVE (NEGATIVE); *BARBITURATES SCREEN URINE NEGATIVE (NEGATIVE); *BENZODIAZEPINES SCREEN URINE NEGATIVE (NEGATIVE); *COCAINE SCREEN URINE NEGATIVE (NEGATIVE)
[2019-05-11 16:57] LABS: CANNABINOID URINE SCREEN NEGATIVE (NEGATIVE); METHADONE URINE SCREEN NEGATIVE (NEGATIVE); OPIATES URINE SCREEN NEGATIVE (NEGATIVE); PHENCYCLIDINE URINE SCREEN NEGATIVE (NEGATIVE)
[2019-05-11 20:44] VITALS: BP 112/51
== END 2019-05-11 20:45 | disposition home or self-care (01) ==
LOC: ER 14:23
DX: R53.1 Weakness (principal); I11.0 Hypertensive heart disease with heart failure; I50.9 Heart failure, unspecified; J44.9 Chronic obstructive pulmonary disease, unspecified; F14.10 Cocaine abuse, uncomplicated; F10.10 Alcohol abuse, uncomplicated; Y90.1 Blood alcohol level of 20-39 mg/100 ml; F17.210 Nicotine dependence, cigarettes, uncomplicated; Z98.51 Tubal ligation status; Z88.0 Allergy status to penicillin
CPT/HCPCS: 36415; 71045; 80053; 80305; 80320; 83690; 83880; 84484; 85025; 93005; 96374; 99284; J2405; J7030; G0480

== ENCOUNTER 2019-09-17 17:50 | Inpatient (IN) | payer MEDICARE, MEDICAID ==
[~2019-09-17] VITALS: Ht 162.6 cm; Wt 6.8 kg
[2019-09-17] MEDS ORDERED: ALBUTEROL (0.083%) 2.5MG/3ML NEB HHN STA (21:58)
[2019-09-17] MEDS ORDERED: IPRATROPIUM BROMIDE (0.02%) 0.5MG/2.5ML NEB HHN STA (21:58)
[2019-09-17] MEDS ORDERED: FUROSEMIDE 40MG/4ML VIAL IVP ONE (22:00)
[2019-09-17] MEDS ORDERED: MAGNESIUM 2 G PREMIX 50 ML IV ONE (22:00)
[2019-09-17] MEDS ORDERED: DEXAMETHASONE 4MG/ML 1ML VIAL IV ONE (22:00)
[2019-09-17 22:25] LABS: BASOPHILS % 0.7 % (0.0-2.0); EOSINOPHILS % 0.8 % (0.0-5.0); HEMATOCRIT. 39.9 % (36.0-48.0); HEMOGLOBIN. 13.1 g/dL (12.0-16.0); MEAN CORPUSCULAR HEMOGLOBIN 32.1 pg (28.0-32.0); MEAN CORPUSCULAR VOLUME 97.6 fL (81.0-99.0); MEAN PLATELET VOLUME 8.3 fl (7.4-10.4); MONOCYTES % 11.2 % (2.0-8.0); NEUTROPHILS % 64.3 % (40.0-76.0); PLATELET 207 x1000/uL (130-400); RED BLOOD CELL COUNT 4.09 mill/uL (4.2-5.4)
[2019-09-17 22:31] LABS: CHLORIDE 104 mEq/L (98-107)
[2019-09-18] MEDS ORDERED: SODIUM CHLORIDE 0.9% 250 ML IV ONE (00:30)
[2019-09-18] MEDS ORDERED: AZITHROMYCIN 500 MG in DEXT 5% WATER 250 ML IV SCH (00:30)
[2019-09-18] MEDS ORDERED: IPRATROPIUM/ALBUTEROL 0.5-3(2.5)MG/3ML NEB HHN PRN (09:30)
[2019-09-18] MEDS ORDERED: ONDANSETRON HCL 4MG/2ML INJ IV PRN (09:30)
[2019-09-18] MEDS ORDERED: CLONIDINE 0.1MG TABLET PO PRN (09:30)
[2019-09-18] MEDS ORDERED: DIPHENHYDRAMINE 50MG/ML VIAL IV PRN (09:30)
[2019-09-18 11:00] VITALS: BP 116/50
[2019-09-18] MEDS ORDERED: ENOXAPARIN 30MG/0.3ML SYR SUBCUT SCH (11:00)
[2019-09-18 12:00] VITALS: BP 125/61
[2019-09-18] MEDS ORDERED: BENZONATATE 100MG CAPSULE PO PRN (15:45)
[2019-09-18] MEDS ORDERED: DOCUSATE SODIUM 100MG CAPSULE PO PRN (15:45)
[2019-09-18 16:00] VITALS: BP 121/61
[2019-09-18] MEDS: POTASSIUM CHLORIDE 10MEQ TABLET SR PO SCH (18:24)
[2019-09-18 20:00] VITALS: BP 122/58
[2019-09-18] MEDS: CARVEDILOL 3.125 MG TABLET PO SCH (21:14)
[2019-09-18] MEDS: FUROSEMIDE 40MG TABLET PO SCH (21:15)
[2019-09-19 04:00] VITALS: BP 131/51
[2019-09-19 07:46] LABS: BASOPHILS % 0.2 % (0.0-2.0); HEMATOCRIT. 40.7 % (36.0-48.0); LYMPHOCYTES % 10.4 % (20.0-50.0); MEAN CORPUSCULAR VOLUME 95.8 fL (81.0-99.0); MEAN PLATELET VOLUME 8.2 fl (7.4-10.4); NEUTROPHILS % 80.4 % (40.0-76.0); PLATELET 288 x1000/uL (130-400); RED BLOOD CELL COUNT 4.25 mill/uL (4.2-5.4); RED CELL DISTRIBUTION WIDTH 12.5 % (11.6-14.6)
[2019-09-19 07:51] LABS: CHLORIDE 109 mEq/L (98-107); HEPATITIS B SURFACE ANTIGEN NEGATIVE
[2019-09-19 08:04] VITALS: BP 110/44
[2019-09-19 08:08] LABS: HDL CHOLESTEROL 58 mg/dL (40-59)
[2019-09-19 08:09] LABS: LDL CHOLESTEROL 142 mg/dL (5-100)
[2019-09-19 08:19] LABS: HEPATITIS A AB IGM NEGATIVE (NEGATIVE)
[2019-09-19] MEDS: CARVEDILOL 3.125 MG TABLET PO SCH (08:41)
[2019-09-19] MEDS: POTASSIUM CHLORIDE 10MEQ TABLET SR PO SCH (08:41)
[2019-09-19] MEDS: FUROSEMIDE 40MG TABLET PO SCH (08:53)
[2019-09-19] MEDS ORDERED: ASPIRIN 81MG TABLET PO SCH (09:00)
[2019-09-19] MEDS ORDERED: THIAMINE HCL 100MG TABLET PO SCH (09:00)
[2019-09-19] MEDS ORDERED: LISINOPRIL 2.5MG TABLET PO SCH (09:00)
[2019-09-19] MEDS ORDERED: NICOTINE 14MG PATCH TD SCH (09:00)
[2019-09-19] MEDS ORDERED: FOLIC ACID 1MG TABLET PO SCH (09:00)
== END 2019-09-19 09:00 | disposition left against medical advice (07) | DRG 683 ==
LOC: ER 17:50 → 6WST 09-18 01:55 → ENRESERV 09-18 08:46
PROVIDERS: ADMIT Internal Medicine; ATTEND Internal Medicine
DX: N17.9 Acute kidney failure, unspecified (principal); E44.1 Mild protein-calorie malnutrition; Z68.1 Body mass index [BMI] 19.9 or less, adult; E87.1 Hypo-osmolality and hyponatremia; I13.0 Hypertensive heart and chronic kidney disease with heart failure and stage 1 through stage 4 chronic kidney disease, or unspecified chronic kidney disease; I42.8 Other cardiomyopathies; J44.1 Chronic obstructive pulmonary disease with (acute) exacerbation; R19.7 Diarrhea, unspecified; J06.9 Acute upper respiratory infection, unspecified; Z53.29 Procedure and treatment not carried out because of patient's decision for other reasons; F10.10 Alcohol abuse, uncomplicated; F14.10 Cocaine abuse, uncomplicated; I08.1 Rheumatic disorders of both mitral and tricuspid valves; F17.210 Nicotine dependence, cigarettes, uncomplicated; I50.9 Heart failure, unspecified; N18.2 Chronic kidney disease, stage 2 (mild); Z82.49 Family history of ischemic heart disease and other diseases of the circulatory system; Z98.51 Tubal ligation status; Z88.0 Allergy status to penicillin; Z79.82 Long term (current) use of aspirin; Z79.899 Other long term (current) drug therapy
CPT/HCPCS: 36415; 71045; 76700; 80053; 80061; 82248; 83880; 84443; 84484; 85025; 86705; 86709; 86803; 87340; 93005; 93970; 94644; 99285; J0456; J1100; J1650; J1940; J3475; J7050; J7060

== ENCOUNTER 2019-11-03 13:48 | Emergency (ER) | payer MEDICARE, MEDICAID ==
[~2019-11-03] VITALS: Ht 170.2 cm; Wt 73.0 kg
[2019-11-03] MEDS ORDERED: SODIUM CHLORIDE 0.9% 1000ML BAG (SEPSIS BOLUS) IV ONE (14:15)
[2019-11-03] MEDS ORDERED: LEVOFLOXACIN 750MG PREMIX 150 ML IV ONE (14:15)
[2019-11-03 14:32] VITALS: BP 98/54
== END 2019-11-03 16:15 | disposition left against medical advice (07) ==
LOC: ER 14:01
DX: R06.02 Shortness of breath (principal); R05 Cough; R19.7 Diarrhea, unspecified; I11.0 Hypertensive heart disease with heart failure; I50.9 Heart failure, unspecified; J44.9 Chronic obstructive pulmonary disease, unspecified; Z98.51 Tubal ligation status; Z79.82 Long term (current) use of aspirin; Z88.0 Allergy status to penicillin; Z79.899 Other long term (current) drug therapy
CPT/HCPCS: 71045; 96365; 99283; J1956; J7030

== ENCOUNTER 2019-12-06 17:26 | Inpatient (IN) | payer BC, MEDICAID ==
[~2019-12-06] VITALS: Ht 165.1 cm; Wt 61.7 kg
[2019-12-06] MEDS ORDERED: VANCOMYCIN 1 G PREMIX 200 ML IV ONE (18:15)
[2019-12-06] MEDS ORDERED: SODIUM CHLORIDE 0.9% 1000ML BAG (SEPSIS BOLUS) IV ONE (18:15)
[2019-12-06] MEDS ORDERED: MEROPENEM 1,000 MG in SODIUM CHLORIDE 0.9% 100 ML IV SCH (18:15)
[2019-12-06 19:04] LABS: BASOPHILS % 0.4 % (0.0-2.0); EOSINOPHILS % 0.1 % (0.0-5.0); HEMATOCRIT. 34.2 % (36.0-48.0); HEMOGLOBIN. 11.4 g/dL (12.0-16.0); LYMPHOCYTES % 20.3 % (20.0-50.0); MEAN CORPUSCULAR HEMOGLOBIN 31.7 pg (28.0-32.0); MEAN CORPUSCULAR VOLUME 95.3 fL (81.0-99.0); MEAN PLATELET VOLUME 8.3 fl (7.4-10.4); MONOCYTES % 10.6 % (2.0-8.0); NEUTROPHILS % 68.6 % (40.0-76.0); PLATELET 205 x1000/uL (130-400); RED BLOOD CELL COUNT 3.59 mill/uL (4.2-5.4); RED CELL DISTRIBUTION WIDTH 13.2 % (11.6-14.6)
[2019-12-06 19:10] LABS: CHLORIDE 104 mEq/L (98-107)
[2019-12-06 19:12] LABS: INR 0.9; PROTHROMBIN TIME 10.2 sec (9.6-11.0)
[2019-12-06] MEDS ORDERED: NOREPINEPHRINE 4MG/250ML PMX 250 ML IV ONE (20:00)
[2019-12-06 20:30] LABS: CLARITY URINE TURBID (CLEAR); COLOR URINE YELLOW (YELLOW); KETONES URINE NEGATIVE (NEGATIVE); LEUKOCYTE ESTERASE URINE 3+ (NEGATIVE); NITRITE URINE NEGATIVE (NEGATIVE); OCCULT BLOOD URINE 1+ (NEGATIVE); PROTEIN URINE 1+ (NEGATIVE); SPECIFIC GRAVITY URINE 1.012 (1.005-1.030)
[2019-12-06] MEDS ORDERED: ACETAMINOPHEN 500MG TABLET PO NR (22:30)
[2019-12-07] MEDS ORDERED: NOREPINEPHRINE 4MG/250ML PMX 250 ML IV ONE (06:30)
[2019-12-07] MEDS ORDERED: SODIUM CHLORIDE 0.9% 1,000 ML IV ONE (08:15)
[2019-12-07 08:57] LABS: CHLORIDE 116 mEq/L (98-107)
[2019-12-07 10:36] LABS: EOSINOPHILS % 0.4 % (0.0-5.0); HEMATOCRIT. 33.8 % (36.0-48.0); HEMOGLOBIN. 11.2 g/dL (12.0-16.0); LYMPHOCYTES % 21.9 % (20.0-50.0); MEAN CORPUSCULAR HEMOGLOBIN 31.2 pg (28.0-32.0); MEAN CORPUSCULAR VOLUME 94.2 fL (81.0-99.0); MEAN PLATELET VOLUME 7.8 fl (7.4-10.4); MONOCYTES % 8.1 % (2.0-8.0); NEUTROPHILS % 68.6 % (40.0-76.0); PLATELET 211 x1000/uL (130-400); RED BLOOD CELL COUNT 3.59 mill/uL (4.2-5.4); RED CELL DISTRIBUTION WIDTH 13.2 % (11.6-14.6)
[2019-12-07] MEDS ORDERED: METOCLOPRAMIDE HCL 10MG/2ML VIAL IV PRN (11:45)
[2019-12-07 12:00] VITALS: BP 139/67
[2019-12-07 12:15] VITALS: BP 132/60
[2019-12-07] MEDS: ACETAMINOPHEN 325MG TABLET PO PRN (12:34)
[2019-12-07] MEDS ORDERED: AZITHROMYCIN 500 MG TABLET PO NR (13:00)
[2019-12-07] MEDS ORDERED: LEVOFLOXACIN 500MG PREMIX 100 ML IV NR (14:00)
[2019-12-07] MEDS ORDERED: BENZONATATE 100MG CAPSULE PO PRN (15:00)
[2019-12-07 20:00] VITALS: BP 138/56
[2019-12-07] MEDS: ENOXAPARIN 30MG/0.3ML SYR SUBCUT SCH (21:36)
[2019-12-08] VITALS: BP 128/62
[2019-12-08 04:00] VITALS: BP 116/57
[2019-12-08 08:00] VITALS: BP 93/44
[2019-12-08] MEDS: AZITHROMYCIN 250 MG TABLET PO SCH (10:21)
[2019-12-08] MEDS: LEVOFLOXACIN 250MG PREMIX 50 ML IV SCH (10:22)
[2019-12-08 12:02] LABS: COVID-19 PCR RNA NOT DETECTED
[2019-12-08 12:04] LABS: COVID-19 PCR RNA DETECTED
[2019-12-08 16:00] VITALS: BP 125/86
[2019-12-08] MEDS: ACETAMINOPHEN 325MG TABLET PO PRN (17:12)
[2019-12-08 20:00] VITALS: BP 103/36
[2019-12-08] MEDS: CARVEDILOL 3.125 MG TABLET PO SCH (21:00)
[2019-12-08] MEDS: ENOXAPARIN 30MG/0.3ML SYR SUBCUT SCH ×2 (21:00→21:31)
[2019-12-08] MEDS ORDERED: VANCOMYCIN 750 MG PREMIX 150 ML IV SCH ×2 (23:00)
[2019-12-09] VITALS: BP 107/51
[2019-12-09 04:00] VITALS: BP 120/52
[2019-12-09 08:00] VITALS: BP 111/47
[2019-12-09] MEDS: AZITHROMYCIN 250 MG TABLET PO SCH (09:39)
[2019-12-09] MEDS: CARVEDILOL 3.125 MG TABLET PO SCH ×2 (09:39→21:54)
[2019-12-09] MEDS: LEVOFLOXACIN 250MG PREMIX 50 ML IV SCH (09:39)
[2019-12-09 12:00] VITALS: BP 96/37
[2019-12-09] MEDS ORDERED: HYDROCODONE/ACETAMINOPHEN 5/325MG TABLET PO PRN (13:45)
[2019-12-09] MEDS ORDERED: METRONIDAZOLE 500 MG PREMIX 100 ML IV SCH (13:45)
[2019-12-09] MEDS ORDERED: BISACODYL 10MG SUPP PR PRN (13:45)
[2019-12-09] MEDS ORDERED: HYDRALAZINE 20MG/ML VIAL IV PRN (13:45)
[2019-12-09] MEDS ORDERED: AZTREONAM 1 G in DEXTROSE 5% WATER 50 ML IV SCH (13:45)
[2019-12-09] MEDS ORDERED: LACTULOSE 20G/30ML UDC PO PRN (13:45)
[2019-12-09] MEDS ORDERED: IPRATROPIUM/ALBUTEROL 0.5-3(2.5)MG/3ML NEB HHN PRN (13:45)
[2019-12-09 15:17] LABS: BASOPHILS % 0.4 % (0.0-2.0); EOSINOPHILS % 0.2 % (0.0-5.0); HEMATOCRIT. 33.6 % (36.0-48.0); HEMOGLOBIN. 11.2 g/dL (12.0-16.0); LYMPHOCYTES % 11.5 % (20.0-50.0); MEAN CORPUSCULAR HEMOGLOBIN 31.5 pg (28.0-32.0); MEAN CORPUSCULAR VOLUME 94.1 fL (81.0-99.0); MEAN PLATELET VOLUME 8.1 fl (7.4-10.4); MONOCYTES % 6.2 % (2.0-8.0); NEUTROPHILS % 81.7 % (40.0-76.0); PLATELET 241 x1000/uL (130-400); RED BLOOD CELL COUNT 3.57 mill/uL (4.2-5.4); RED CELL DISTRIBUTION WIDTH 13.5 % (11.6-14.6)
[2019-12-09 15:18] LABS: CHLORIDE 108 mEq/L (98-107)
[2019-12-09 16:00] VITALS: BP 110/34
[2019-12-09] MEDS: METRONIDAZOLE 500 MG PREMIX 100 ML IV SCH (16:46)
[2019-12-09] MEDS: AZTREONAM 500MG in DEXTROSE 5% WATER 50ML IV SCH (18:18)
[2019-12-09 20:00] VITALS: BP 132/63
[2019-12-09] MEDS: ENOXAPARIN 30MG/0.3ML SYR SUBCUT SCH (21:00)
[2019-12-09] MEDS: FAMOTIDINE 20MG TABLET PO SCH (21:54)
[2019-12-10] VITALS (7 sets, daily range): BP systolic 91–132; BP diastolic 37–73
[2019-12-10] MEDS: METRONIDAZOLE 500 MG PREMIX 100 ML IV SCH ×3 (00:28→21:00)
[2019-12-10] MEDS: AZTREONAM 500MG in DEXTROSE 5% WATER 50ML IV SCH ×2 (05:18→17:31)
[2019-12-10] MEDS: CARVEDILOL 3.125 MG TABLET PO SCH ×2 (08:38→21:00)
[2019-12-10] MEDS: ACETAMINOPHEN 325MG TABLET PO PRN (08:39)
[2019-12-10 10:39] LABS: BG BASE EXCESS -10.5 mmol/L (-2.0-2.0); BG CARBOXYHEMOGLOBIN 0.2 % (0.5-1.5); BG DEOXYHEMOGLOBIN 4.1 % (0.0-5.0); BG HCO3 ACT 12.7 mmol/L (22.0-26.0); BG METHEMOGLOBIN 0.1 % (0.0-1.5); BG OXYGEN SATURATION 95.9 % (92.0-98.5); BG OXYHEMOGLOBIN 95.6 % (94.0-97.0); BG PCO2 21.3 mmHg (35.0-45.0); BG PH 7.392 (7.350-7.450); BG PO2 87.2 mmHg (75.0-100.0); BG SAMPLE SITE RIGHT BRACHIAL; BG TOTAL HEMOGLOBIN 10.4 g/dL (12.0-18.0); BG VENT MODE NASAL CANNULA
[2019-12-10] MEDS: SODIUM CHLORIDE 0.45% 1,000 ML IV SCH (13:09)
[2019-12-10] MEDS: ENOXAPARIN 60MG/0.6ML SYR SUBCUT SCH (13:38)
[2019-12-10] MEDS: FAMOTIDINE 20MG TABLET PO SCH (20:59)
[2019-12-11] VITALS: BP 112/48
[2019-12-11 04:00] VITALS: BP 101/48
[2019-12-11] MEDS: AZTREONAM 500MG in DEXTROSE 5% WATER 50ML IV SCH ×2 (05:34→18:28)
[2019-12-11 06:52] LABS: BASOPHILS % 0.2 % (0.0-2.0); HEMATOCRIT. 30.6 % (36.0-48.0); HEMOGLOBIN. 10.1 g/dL (12.0-16.0); LYMPHOCYTES % 18.1 % (20.0-50.0); MEAN CORPUSCULAR HEMOGLOBIN 31.3 pg (28.0-32.0); MEAN CORPUSCULAR VOLUME 94.4 fL (81.0-99.0); MEAN PLATELET VOLUME 7.9 fl (7.4-10.4); MONOCYTES % 6.7 % (2.0-8.0); PLATELET 271 x1000/uL (130-400); RED BLOOD CELL COUNT 3.24 mill/uL (4.2-5.4); RED CELL DISTRIBUTION WIDTH 13.2 % (11.6-14.6)
[2019-12-11 08:00] VITALS: BP 140/63
[2019-12-11 08:27] LABS: PHOSPHORUS 3.2 mg/dL (2.5-4.9)
[2019-12-11] MEDS: SODIUM CHLORIDE 0.45% 1,000 ML IV SCH (08:45)
[2019-12-11] MEDS: METRONIDAZOLE 500 MG PREMIX 100 ML IV SCH ×2 (09:00→21:37)
[2019-12-11] MEDS: CARVEDILOL 3.125 MG TABLET PO SCH ×2 (09:17→21:37)
[2019-12-11 12:00] VITALS: BP 152/46
[2019-12-11] MEDS: ENOXAPARIN 60MG/0.6ML SYR SUBCUT SCH ×2 (14:00→14:56)
[2019-12-11] MEDS: SODIUM BICARBONATE 650 MG TABLET PO SCH (18:28)
[2019-12-11 20:00] VITALS: BP 120/44
[2019-12-11] MEDS: FAMOTIDINE 20MG TABLET PO SCH (21:37)
[2019-12-12] VITALS: BP 125/45
[2019-12-12 04:09] VITALS: BP 112/45
[2019-12-12] MEDS: SODIUM CHLORIDE 0.45% 1,000 ML IV SCH (04:54)
[2019-12-12] MEDS: AZTREONAM 500MG in DEXTROSE 5% WATER 50ML IV SCH ×2 (05:12→17:54)
[2019-12-12] MEDS: METRONIDAZOLE 500 MG PREMIX 100 ML IV SCH ×2 (08:03→22:19)
[2019-12-12] MEDS: CARVEDILOL 3.125 MG TABLET PO SCH ×2 (08:08→22:23)
[2019-12-12] MEDS: SODIUM BICARBONATE 650 MG TABLET PO SCH ×2 (08:09→17:56)
[2019-12-12 08:26] VITALS: BP 104/40
[2019-12-12 11:37] VITALS: BP 118/52
[2019-12-12 12:55] LABS: HEMATOCRIT 30.8 % (36.0-48.0); HEMOGLOBIN 10.5 g/dL (12.0-16.0); MEAN CORPUSCULAR HEMOGLOBIN 31.8 pg (28.0-32.0); MEAN CORPUSCULAR VOLUME 93.2 fL (81.0-99.0); PLATELET 317 x1000/uL (130-400); RED CELL DISTRIBUTION WIDTH 13.6 % (11.6-14.6)
[2019-12-12] MEDS: ENOXAPARIN 60MG/0.6ML SYR SUBCUT SCH (14:00)
[2019-12-12 16:26] VITALS: BP 116/36
[2019-12-12 16:27] LABS: HEMOGLOBIN 10.9 g/dL (12.0-16.0); MEAN CORPUSCULAR VOLUME 93.9 fL (81.0-99.0); PLATELET 346 x1000/uL (130-400); RED BLOOD CELL COUNT 3.51 mill/uL (4.2-5.4); RED CELL DISTRIBUTION WIDTH 13.4 % (11.6-14.6)
[2019-12-12 20:00] VITALS: BP_SYST 129; BP_SYST 146; BP_DIAS 65; BP_DIAS 72
[2019-12-12] MEDS: FAMOTIDINE 20MG TABLET PO SCH (22:23)
[2019-12-12] MEDS: ACETAMINOPHEN 325MG TABLET PO PRN (22:24)
[2019-12-13] VITALS: BP 128/75
[2019-12-13 06:00] VITALS: BP 102/69
[2019-12-13] MEDS: AZTREONAM 500MG in DEXTROSE 5% WATER 50ML IV SCH ×2 (06:21→19:04)
[2019-12-13 08:00] VITALS: BP 116/50
[2019-12-13] MEDS: SODIUM CHLORIDE 0.45% 1,000 ML IV SCH (09:40)
[2019-12-13] MEDS: METRONIDAZOLE 500 MG PREMIX 100 ML IV SCH ×2 (09:41→21:02)
[2019-12-13] MEDS: SODIUM BICARBONATE 650 MG TABLET PO SCH ×2 (09:41→19:04)
[2019-12-13] MEDS: CARVEDILOL 3.125 MG TABLET PO SCH ×2 (09:41→21:03)
[2019-12-13 12:00] VITALS: BP 134/64
[2019-12-13] MEDS: ENOXAPARIN 60MG/0.6ML SYR SUBCUT SCH (15:57)
[2019-12-13 16:00] VITALS: BP 140/62
[2019-12-13 20:00] VITALS: BP 114/59
[2019-12-13] MEDS: FAMOTIDINE 20MG TABLET PO SCH (21:02)
[2019-12-14] VITALS: BP 120/53
[2019-12-14 04:00] VITALS: BP 123/61
[2019-12-14] MEDS: AZTREONAM 500MG in DEXTROSE 5% WATER 50ML IV SCH ×2 (05:18→17:11)
[2019-12-14 08:00] VITALS: BP 146/65
[2019-12-14] MEDS: METRONIDAZOLE 500 MG PREMIX 100 ML IV SCH ×2 (08:34→21:11)
[2019-12-14] MEDS: CARVEDILOL 3.125 MG TABLET PO SCH ×2 (08:34→21:11)
[2019-12-14] MEDS: SODIUM BICARBONATE 650 MG TABLET PO SCH ×2 (08:34→17:11)
[2019-12-14 12:00] VITALS: BP 144/69
[2019-12-14] MEDS: ENOXAPARIN 60MG/0.6ML SYR SUBCUT SCH (14:57)
[2019-12-14 20:00] VITALS: BP 134/51
[2019-12-14] MEDS: FAMOTIDINE 20MG TABLET PO SCH (21:11)
[2019-12-15 00:39] VITALS: BP 142/69
[2019-12-15 04:42] VITALS: BP 116/56
[2019-12-15 08:00] VITALS: BP 143/68
[2019-12-15 08:27] LABS: HEMATOCRIT 30.8 % (36.0-48.0); HEMOGLOBIN 10.4 g/dL (12.0-16.0); MEAN CORPUSCULAR HEMOGLOBIN 31.4 pg (28.0-32.0); MEAN CORPUSCULAR VOLUME 92.9 fL (81.0-99.0); PLATELET 505 x1000/uL (130-400); RED BLOOD CELL COUNT 3.31 mill/uL (4.2-5.4); RED CELL DISTRIBUTION WIDTH 13.7 % (11.6-14.6)
[2019-12-15] MEDS: SODIUM BICARBONATE 650 MG TABLET PO SCH ×2 (09:38→17:21)
[2019-12-15] MEDS: CARVEDILOL 3.125 MG TABLET PO SCH ×2 (09:38→21:18)
[2019-12-15 12:00] VITALS: BP 116/66
[2019-12-15] MEDS: ENOXAPARIN 60MG/0.6ML SYR SUBCUT SCH (13:06)
[2019-12-15 16:00] VITALS: BP 146/52
[2019-12-15 20:00] VITALS: BP 161/70
[2019-12-15] MEDS: FAMOTIDINE 20MG TABLET PO SCH (21:17)
[2019-12-16] VITALS: BP 131/65
[2019-12-16 04:00] VITALS: BP 142/64
[2019-12-16 08:00] VITALS: BP 146/70
[2019-12-16] MEDS: CARVEDILOL 3.125 MG TABLET PO SCH ×2 (09:14→22:26)
[2019-12-16] MEDS: SODIUM BICARBONATE 650 MG TABLET PO SCH ×2 (09:14→17:55)
[2019-12-16 12:00] VITALS: BP 141/75
[2019-12-16] MEDS: ENOXAPARIN 60MG/0.6ML SYR SUBCUT SCH (14:36)
[2019-12-16 16:06] VITALS: BP 150/64
[2019-12-16 20:00] VITALS: BP 157/70
[2019-12-16] MEDS: FAMOTIDINE 20MG TABLET PO SCH (22:26)
[2019-12-17] VITALS: BP 137/76
[2019-12-17 04:00] VITALS: BP 133/62
[2019-12-17 08:00] VITALS: BP 130/60
[2019-12-17] MEDS: CARVEDILOL 3.125 MG TABLET PO SCH ×2 (08:32→20:48)
[2019-12-17] MEDS: SODIUM BICARBONATE 650 MG TABLET PO SCH ×2 (08:32→16:27)
[2019-12-17 12:00] VITALS: BP 142/73
[2019-12-17] MEDS: ENOXAPARIN 60MG/0.6ML SYR SUBCUT SCH (13:48)
[2019-12-17 16:00] VITALS: BP 136/75
[2019-12-17 20:00] VITALS: BP 168/78
[2019-12-17] MEDS: FAMOTIDINE 20MG TABLET PO SCH (20:47)
[2019-12-18] VITALS: BP 148/75
[2019-12-18 04:00] VITALS: BP 151/77
[2019-12-18 08:00] VITALS: BP 169/82
[2019-12-18] MEDS: SODIUM BICARBONATE 650 MG TABLET PO SCH ×2 (08:45→17:00)
[2019-12-18] MEDS: CARVEDILOL 3.125 MG TABLET PO SCH (08:45)
[2019-12-18] MEDS ORDERED: CARVEDILOL 3.125 MG TABLET PO NR (11:00)
[2019-12-18 12:00] VITALS: BP 132/67
[2019-12-18] MEDS: ENOXAPARIN 60MG/0.6ML SYR SUBCUT SCH (13:28)
[2019-12-18 15:06] VITALS: BP 132/67
[2019-12-18 16:00] VITALS: BP 146/92
[2019-12-18] MEDS: ACETAMINOPHEN 325MG TABLET PO PRN (16:27)
[2019-12-18] MEDS ORDERED: CARVEDILOL 3.125 MG TABLET PO SCH (21:00)
== END 2019-12-18 17:15 | DRG 871 ==
LOC: ER 17:26 → 7WST 19:20 → EDBEDREQSVC 12-07 07:58 → ENRESERV 12-07 11:35
PROVIDERS: ADMIT Internal Medicine; ATTEND Internal Medicine
PROC: 02HV33Z Insertion of Infusion Device into Superior Vena Cava, Percutaneous Approach (ICD-10-PCS; principal; 2019-12-06)
PROC: B548ZZA Ultrasonography of Superior Vena Cava, Guidance (ICD-10-PCS; 2019-12-06)
DX: A41.89 Other specified sepsis (principal); U07.1 COVID-19; R65.21 Severe sepsis with septic shock; I50.23 Acute on chronic systolic (congestive) heart failure; N39.0 Urinary tract infection, site not specified; E87.1 Hypo-osmolality and hyponatremia; E44.1 Mild protein-calorie malnutrition; I42.9 Cardiomyopathy, unspecified; I13.0 Hypertensive heart and chronic kidney disease with heart failure and stage 1 through stage 4 chronic kidney disease, or unspecified chronic kidney disease; E87.2 Acidosis; N17.9 Acute kidney failure, unspecified; J44.1 Chronic obstructive pulmonary disease with (acute) exacerbation; A41.1 Sepsis due to other specified staphylococcus; I34.0 Nonrheumatic mitral (valve) insufficiency; R94.31 Abnormal electrocardiogram [ECG] [EKG]; D72.819 Decreased white blood cell count, unspecified; N18.9 Chronic kidney disease, unspecified; I27.20 Pulmonary hypertension, unspecified; D64.9 Anemia, unspecified; Z98.51 Tubal ligation status; Z91.19 Patient's noncompliance with other medical treatment and regimen; Z88.0 Allergy status to penicillin; Z68.22 Body mass index [BMI] 22.0-22.9, adult; Z79.899 Other long term (current) drug therapy; Z79.82 Long term (current) use of aspirin
CPT/HCPCS: 36415; 36600; 71045; 80048; 80053; 81003; 82375; 82805; 83605; 83735; 83880; 84100; 84145; 84484; 85025; 85027; 85379; 86850; 86900; 87635; 93005; 99291; J1650; J1956; J2185; J3370; J3490; J7030; J7050; J7060